=== PATIENT | female | born 1945 | race Caucasian/White ===

== ENCOUNTER → 2020-06-15 | Outpatient (CLI) | payer MEDICARE ==
--- NOTE | 2020-06-17 15:50 | RAD ---
BILATERAL SCREENING MAMMOGRAM, 3-D History: Routine screening. Comparison: 06/13/2019, 06/07/2018, 05/24/2017 exam performed at an outside facility. Technique: MLO and CC digital tomosynthesis (3D) images obtained. Radiologist reviewed these images on dedicated workstation. Findings: Breast Tissue Density B : There are scattered areas of fibroglandular density. There are no dominant masses, suspicious microcalcifications, or architectural distortion. Right outer breast asymmetry seen at the lower aspect is present limiting 0.9 cm from the nipple. It is lobulated and measures up to 0.8 cm diameter. IMPRESSION: Ultrasound imaging of the right lower outer breast asymmetry is recommended. Spot compression imaging of the right breast may be needed. BI-RADS Category 0: Incomplete: Need additional imaging evaluation. The images were reviewed with computer-aided detection. Patient information is entered into reminder system with a target due date for the next screening mammogram. Mammography is the most sensitive method for finding small breast cancers, but it does not detect them all and is not a substitute for careful clinical examination. A negative mammogram does not negate a clinically suspicious finding and should not result in delay in biopsying a clinically suspicious abnormality. "Our facility is accredited by the [employer] Mammography Program." Electronically signed by: Yoni Stover MD (06/17/2020 3:48 PM) [facility]
== END ==
LOC: MAMMO 13:10
PROVIDERS: ATTEND Family Medicine
DX: Z12.31 Encounter for screening mammogram for malignant neoplasm of breast (principal)
CPT/HCPCS: 77063; 77067

== ENCOUNTER → 2020-07-06 | Outpatient (CLI) | payer MEDICARE ==
--- NOTE | 2020-07-07 09:35 | RAD ---
Examination: Limited right breast ultrasound. INDICATION: Screening recall for lobulated mass in the lower outer right breast on recent mammogram. COMPARISON: Mammogram of 06/15/2020 TECHNIQUE: Grayscale ultrasound imaging of the right breast in the lateral posterior breast was perfo rmed along with sonographic survey of the right axilla FINDINGS: An oval parallel orientation circumscribed 6 mm vascular masses identified and has a somewhat renifor m shape. This is identified at the 9:30 o'clock position 10.5 cm from the nipple and likely correlate s with the mammographic finding recalled from screening. No suspicious sonographic findings in the ri ght axilla identified. IMPRESSION: Benign intramammary lymph node in the lateral posterior right breast likely accounts for the mammogra phic finding recalled from screening. No evidence of malignancy. BI-RADS Category 2 Benign findings Recommend return to routine mammographic screening next due in one year. Patient entered into a reminder system with targeted due date for next mammogram. Electronically signed by: Gibran Stovall MD (07/07/2020 9:33 AM) [id number]
== END ==
LOC: US 13:42
PROVIDERS: ATTEND Family Medicine
DX: R92.2 Inconclusive mammogram (principal); N63.10 Unspecified lump in the right breast, unspecified quadrant
CPT/HCPCS: 76641

== ENCOUNTER 2021-02-08 00:29 | Emergency (ER) | payer MEDICARE ==
[~2021-02-08] VITALS: Ht 157.5 cm; Wt 72.2 kg
[2021-02-08] MEDS ORDERED: ONDANSETRON PF 4 MG/2 ML VIAL. ONE (00:57)
[2021-02-08 01:33] LABS: BASO # 0.1 x10^3/uL (0.0-0.2); BASO % 1 % (0-3); EOS # 0.1 x10^3/uL (0.0-0.7); EOS % 1 % (0-3); HEMATOCRIT 39.5 % (36.0-47.0); HEMOGLOBIN 13.3 g/dL (12.0-15.5); LYMPH # 1.4 x10^3/uL (1.0-4.8); LYMPH % 17 % (24-48); MEAN CORPUSCULAR HEMOGLOBIN 28 pg (25-35); MEAN CORPUSCULAR HGB CONC 34 g/dL (31-37); MEAN CORPUSCULAR VOLUME 82 fL (79-100); MONO # 0.6 x10^3/uL (0.0-1.1); MONO % 7 % (0-9); NEUT # 6.2 x10^3uL (1.8-7.7); NEUT % 74 % (31-73); PLATELET COUNT 386 x10^3/uL (140-400); RED BLOOD COUNT 4.81 x10^6/uL (3.50-5.40); RED CELL DISTRIBUTION WIDTH 15.2 % (11.5-14.5); WHITE BLOOD COUNT 8.4 x10^3/uL (4.0-11.0)
[2021-02-08 01:38] LABS: CALCIUM 9.8 mg/dL (8.5-10.1); CREATININE 0.8 mg/dL (0.6-1.0); GFR 69.6
[2021-02-08 01:41] LABS: BACTERIA,URINE 0 /HPF (0-FEW); BILIRUBIN,URINE NEG (NEG); CLARITY,URINE CLEAR; COLOR,URINE YELLOW; GLUCOSE,URINE 100 mg/dL (NEG); NITRITE,URINE NEG (NEG); RBC,URINE OCC /HPF (0-2); SQUAMOUS EPITHELIAL CELL,UR FEW /LPF; UROBILINOGEN,URINE 0.2 mg/dL (0.2 mg/dL); WBC,URINE OCC /HPF (0-4)
[2021-02-08 01:43] LABS: ALBUMIN 4.2 g/dL (3.4-5.0); ALBUMIN/GLOBULIN RATIO 1.3 (1.0-1.7); TOTAL BILIRUBIN 0.8 mg/dL (0.2-1.0); TOTAL PROTEIN 7.5 g/dL (6.4-8.2)
[2021-02-08] MEDS ORDERED: PANTOPRAZOLE IV 40 MG VIAL. IVP ONE (02:00)
[2021-02-08] MEDS ORDERED: FAMOTIDINE 20 MG/2 ML VIAL IVP ONE (02:00)
--- NOTE | 2021-02-08 02:33 | RAD ---
EXAM: CHEST ONE VIEW. HISTORY: Chest pain. COMPARISON: None. FINDINGS: A frontal view of the chest is obtained. There are no confluent infiltrates. There is a calcified granuloma in the right upper lobe. There is no pneumothorax or pleural effusion. The heart is not enlarged. There is a large hiatal hernia. There are atherosclerotic calcifications of the aorta. IMPRESSION: 1. Large hiatal hernia. Electronically signed by: Alan Larsen MD (02/08/2021 2:31 AM) [facility]
--- NOTE | 2021-02-08 02:42 | PHYS DOC ---
General Adult EDM: Chief Complaint: ABDOMINAL PAIN HPI: HPI: 75-year-old female presents with epigastric or chest pain. The patient was at home and had dinner. About an hour later she started to have a central burning and pressure in her upper abdomen. She has had this in the past that was diagnosed as heartburn. She took 3 generic Tums. An hour later she started some discomfort so she took 2 more. She started to feel some relief but then pain came back and she became nauseated and mildly diaphoretic. She denies shortness of breath. She decided this could be more than heartburn so she came to the emergency room. Her pain has improved significantly since arriving. No history of cardiac dysfunction. She does have a large hiatal hernia. Review of Systems: Review of Systems: Constitutional: Denies fever or chills Eyes: Denies change in visual acuity HENT: Denies nasal congestion or sore throat Respiratory: Denies cough or shortness of breath Cardiovascular: Denies chest pain or edema GI: Epigastric abdominal pain, nausea. Denies vomiting, bloody stools or diarrhea : Denies dysuria Musculoskeletal: Denies back pain or joint pain Integument: Denies rash Neurologic: Denies headache, focal weakness or sensory changes Endocrine: Denies polyuria or polydipsia Lymphatic: Denies swollen glands Psychiatric: Denies depression or anxiety Current Medications: Current Meds: Current Medications Medications (Trade) Dose Ordered Sig/Yanci Start Time Stop Time Status Last Admin Dose Admin Famotidine (Pepcid Vial) 20 mg 1X ONCE 02/08/21 02:00 02/08/21 02:01 DC Ondansetron HCl (Zofran) 4 mg STK-MED ONCE 02/08/21 00:57 02/08/21 00:57 DC Pantoprazole Sodium (Protonix Vial) 40 mg 1X ONCE 02/08/21 02:00 02/08/21 02:01 DC Allergies: Allergies: Allergies Coded Allergies Type Severity Reaction Last Updated Verified No Known Drug Allergies 02/08/21 No Physical Exam: PE: Constitutional: Well developed, well nourished, obese, no acute distress, non- toxic appearance. [] HENT: Normocephalic, atraumatic, bilateral external ears normal, oropharynx moist, no oral exudates, nose normal. [] Eyes: PERRLA, EOMI, conjunctiva normal, no discharge. [] Neck: Normal range of motion, no tenderness, supple, no stridor. [] Cardiovascular: Heart rate 78, regular rhythm, no murmur [] Lungs & Thorax: Bilateral breath sounds clear to auscultation [] Abdomen: Bowel sounds normal, soft, no tenderness, no masses, no pulsatile masses. [] Skin: Warm, dry, no erythema, no rash. [] Back: No tenderness, no CVA tenderness. [] Extremities: No tenderness, no cyanosis, no clubbing, ROM intact, no edema. [] Neurologic: Alert and oriented X 3, normal motor function, normal sensory function, no focal deficits noted. [] Psychologic: Affect normal, judgement normal, mood normal. [] Current Patient Data: Labs: Laboratory Tests Test 02/08/21 00:40 02/08/21 00:55 Urine Collection Type Unknown Urine Color Yellow Urine Clarity Clear Urine pH 8.0 Urine Specific [place] 1.020 Urine Protein Neg (NEG-TRACE) Urine Glucose (UA) 100 mg/dL (NEG) Urine Ketones (Stick) Neg mg/dL (NEG) Urine Blood Trace (NEG) Urine Nitrite Neg (NEG) Urine Bilirubin Neg (NEG) Urine Urobilinogen Dipstick 0.2 mg/dL (0.2 mg/dL) Urine Leukocyte Esterase Neg (NEG) Urine RBC Occ /HPF (0-2) Urine WBC Occ /HPF (0-4) Urine Squamous Epithelial Cells Few /LPF Urine Bacteria 0 /HPF (0-FEW) White Blood Count 8.4 x10^3/uL (4.0-11.0) Red Blood Count 4.81 x10^6/uL (3.50-5.40) Hemoglobin 13.3 g/dL (12.0-15.5) Hematocrit 39.5 % (36.0-47.0) Mean Corpuscular Volume 82 fL (79-100) Mean Corpuscular Hemoglobin 28 pg (25-35) Mean Corpuscular Hemoglobin Concent 34 g/dL (31-37) Red Cell Distribution Width 15.2 % (11.5-14.5) H Platelet Count 386 x10^3/uL (140-400) Neutrophils (%) (Auto) 74 % (31-73) H Lymphocytes (%) (Auto) 17 % (24-48) L Monocytes (%) (Auto) 7 % (0-9) Eosinophils (%) (Auto) 1 % (0-3) Basophils (%) (Auto) 1 % (0-3) Neutrophils # (Auto) 6.2 x10^3uL (1.8-7.7) Lymphocytes # (Auto) 1.4 x10^3/uL (1.0-4.8) Monocytes # (Auto) 0.6 x10^3/uL (0.0-1.1) Eosinophils # (Auto) 0.1 x10^3/uL (0.0-0.7) Basophils # (Auto) 0.1 x10^3/uL (0.0-0.2) Sodium Level 136 mmol/L (136-145) Potassium Level 4.0 mmol/L (3.5-5.1) Chloride Level 99 mmol/L (98-107) Carbon Dioxide Level 30 mmol/L (21-32) Anion Gap 7 (6-14) Blood Urea Nitrogen 18 mg/dL (7-20) Creatinine 0.8 mg/dL (0.6-1.0) Estimated GFR (Cockcroft-Gault) 69.6 BUN/Creatinine Ratio 23 (6-20) H Glucose Level 156 mg/dL (70-99) H Calcium Level 9.8 mg/dL (8.5-10.1) Total Bilirubin 0.8 mg/dL (0.2-1.0) Aspartate Amino Transferase (AST) 309 U/L (15-37) H Alanine Aminotransferase (ALT) 116 U/L (14-59) H Alkaline Phosphatase 185 U/L (46-116) H Troponin I Quantitative < 0.017 ng/mL (0-0.055) Total Protein 7.5 g/dL (6.4-8.2) Albumin 4.2 g/dL (3.4-5.0) Albumin/Globulin Ratio 1.3 (1.0-1.7) EKG: EKG: Sinus rhythm, rate 78, normal axis, no ST elevation or depression. [] Radiology/Procedures: Radiology/Procedures: [] Impressions: EXAM: CHEST ONE VIEW. HISTORY: Chest pain. COMPARISON: None. FINDINGS: A frontal view of the chest is obtained. There are no confluent infiltrates. There is a calcified granuloma in the right upper lobe. There is no pneumothorax or pleural effusion. The heart is not enlarged. There is a large hiatal hernia. There are atherosclerotic calcifications of the aorta. IMPRESSION: 1. Large hiatal hernia. Electronically signed by: Alan Larsen MD (02/08/2021 2:31 AM) [facility] DICTATED AND SIGNED BY: COREY LARSEN MD DATE: 02/08/21 0230 CC: KAITY MI DO; ENE RAMESH ~MTH0 0 Heart Score: C/O Chest Pain: Yes HEART Score for Chest Pain: HEART Score for Chest Pain Response (Comments) Value History Slighlty/Non-Suspicious 0 ECG Normal 0 Age > 65 2 Risk Factors 1 or 2 Risk Factors 1 Troponin < Normal Limit 0 Total 3 Risk Factors: Risk Factors: DM, Current or recent (<one month) smoker, HTN, HLP, family history of CAD, obesity. Risk Scores: Score 0 - 3: 2.5% MACE over next 6 weeks - Discharge Home Score 4 - 6: 20.3% MACE over next 6 weeks - Admit for Clinical Observation Score 7 - 10: 72.7% MACE over next 6 weeks - Early Invasive Strategies Course & Med Decision Making: Course & Med Decision Making Pertinent Labs and Imaging studies reviewed. (See chart for details) The patient's EKG is unremarkable. Her troponin is negative. Her chest x-ray is significant for hiatal hernia. She does have elevated liver enzymes have added a lipase to the order set. The patient has gotten 40 mg of Protonix and 20 mg of Pepcid. She is feeling better at this time. CT scan of the abdomen and pelvis by my read shows an enlarged gallbladder with likely gallstones. The official read is not available as radiology has not read the scan in a timely manner. Patient would like to go home. I believe this is reasonable. I have told her she should follow-up with her primary physician and talk about surgical consult for gallbladder removal if necessary. She is stable for discharge at this time. [] Dragon Disclaimer: Dragon Disclaimer: This electronic medical record was generated, in whole or in part, using a voice recognition dictation system. Departure Departure: Impression: Primary Impression: Abdominal pain Qualified Codes: R10.13 - Epigastric pain Additional Impression: Elevated liver enzymes Disposition: HOME / SELF CARE / HOMELESS Condition: STABLE Referrals: ENE RAMESH (PCP) Patient Instructions: Abdominal Pain, [id number] KAITY MI DO Feb 08, 2021 02:42
[2021-02-08] MEDS ORDERED: ONDANSETRON PF 4 MG/2 ML VIAL. IVP ONE ×2 (03:30)
[2021-02-08] MEDS ORDERED: CONTRAST GIVEN. MC PRN (03:30)
[2021-02-08] MEDS ORDERED: IOHEXOL 300 MG/ML 75 ML VIAL. IV ONE (03:30)
[2021-02-08 04:51] VITALS: BP 189/106
--- NOTE | 2021-02-08 04:53 | RAD ---
EXAM: CT ABDOMEN/PELVIS WITH CONTRAST. HISTORY: Epigastric pain, elevated liver enzymes. TECHNIQUE: Computed tomography of the abdomen and pelvis was performed after the intravenous administ ration of iodinated contrast. One or more of the following individualized dose reduction techniques w ere utilized for this examination: 1. Automated exposure control. 2. Adjustment of the mA and/or kV according to patient size. 3. Use of iterative reconstruction technique. COMPARISON: None. FINDINGS: Lung windows through the visualized portions of the bases reveal a large hiatal hernia. Bon e windows reveal no suspicious lesions. The gallbladder contains small stones. It is distended with wall thickening and a small amount of per icholecystic fluid. The common duct is not dilated. The liver, pancreas, and adrenal glands are unremarkable. There are calcified granulomas in the splee n. There is a tiny cyst in the right kidney. Note is made of a retroaortic left renal vein. There are no pathologically enlarged lymph nodes. The uterus is surgically absent. Small bilateral in guinal hernias contain only fat. The appendix is not inflamed. A small umbilical hernia contains only fat. There is no small bowel obstruction. IMPRESSION: 1. Cholelithiasis with findings consistent with acute cholecystitis. 2. Large hiatal hernia. 3. Bilateral inguinal and small umbilical hernias containing only fat. Electronically signed by: Alan Larsen MD (02/08/2021 4:51 AM) [facility]
--- NOTE | 2021-02-08 06:30 | EKG ---
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
== END 2021-02-08 04:50 | disposition home or self-care (01) ==
LOC: ER 00:29
DX: R74.8 Abnormal levels of other serum enzymes (principal); R10.13 Epigastric pain; R07.89 Other chest pain
CPT/HCPCS: 36415; 71045; 74177; 80053; 81001; 83690; 84484; 85025; 93005; 96374; 96375; 96376; 99285; C9113; J2405; J3490; Q9967

== ENCOUNTER 2021-04-21 02:36 | Emergency (ER) | payer MEDICARE ==
[~2021-04-21] VITALS: Ht 149.9 cm; Wt 77.7 kg
[2021-04-21 02:49] VITALS: BP 182/97
--- NOTE | 2021-04-21 03:29 | PHYS DOC ---
Past History Additional Past Medical Histor: hiatal hernia Past Surgical History: Cholecystectomy, Hysterectomy, Knee Replacement Alcohol Use: None General Adult EDM: Chief Complaint: MECHANICAL FALL HPI: HPI: Patient is a [age] year old [sex] who presents with [] Review of Systems: Review of Systems: Constitutional: Denies fever or chills Eyes: Denies redness or eye pain HENT: Denies nasal congestion or sore throat Respiratory: Denies cough or shortness of breath Cardiovascular: Denies chest pain or palpitations GI: Denies abdominal pain, nausea, or vomiting : Denies dysuria or hematuria Musculoskeletal: Denies neck pain; reports right shoulder pain Integument: Denies rash or skin lesions Neurologic: Denies headache, focal weakness or sensory changes Complete systems were reviewed and found to be within normal limits, except as documented in this note. Allergies: Allergies: Allergies Coded Allergies Type Severity Reaction Last Updated Verified No Known Drug Allergies 04/21/21 No Physical Exam: PE: Constitutional: Elderly, well nourished, uncomfortable, non-toxic appearance HENT: Normocephalic, atraumatic Eyes: PERRL, EOMI, conjunctiva normal, no discharge Neck: Normal range of motion, no midline tenderness, supple Lungs & Thorax: No respiratory distress, equal chest rise and fall Abdomen: Soft, no tenderness; pelvis stable and nontender Skin: Warm, dry, no erythema, no rash Back: No midline tenderness, no CVA tenderness Extremities: Right glenohumeral tenderness, ROM diminished secondary to pain, no edema, distal sensation intact and right radial pulse +2 Neurologic: Alert and oriented X 3, normal motor function, normal sensory function, no focal deficits noted Psychologic: Affect normal, judgment normal Current Patient Data: Vital Signs: Vital Signs Date Time Temp Pulse Resp B/P (MAP) Pulse Ox O2 Delivery O2 Flow Rate FiO2 04/21/21 02:49 97.5 81 18 182/97 (125) Room Air EKG: EKG: [] Radiology/Procedures: Radiology/Procedures: PROCEDURE: SHOULDER 2+V RIGHT XR SHOULDER_RIGHT 2+ VIEWS History: Reason: pain s/p fall / Spl. Instructions: / History: Technique: 3 views right shoulder Comparison: None. Findings: Acute comminuted right humeral head fracture involving the surgical neck and greater tuberosity. There is mild impaction and angulation Inferior anterior positioning of the humeral head in relation to the glenoid. No additional fracture. Calcified right midlung pulmonary nodule, likely prior granulomatous disease. Impression: 1. Acute comminuted right proximal humerus fracture. 2. Anterior inferior positioning of the humeral head in relation to the glenoid, may relate to joint effusion. Electronically signed by: Louie Quinn DO (04/21/2021 3:30 AM) [facility] Heart Score: C/O Chest Pain: N/A Course & Med Decision Making: Course & Med Decision Making Pertinent Imaging studies reviewed. (See chart for details) Patient presents with report of mechanical trip and fall with subsequent right shoulder pain. Limb neurovascular intact. Patient is neurologically intact. No midline cervical spine tenderness noted. Denies any loss of consciousness or neck pain. Ice applied. X-ray confirmed humeral head fracture. Pain addressed. Shoulder immobilizer placed. Patient stable for discharge with outpatient follow-up with PCP/orthopedics. Orthopedic referral provided. Discussed findings and plan with patient and grandson, who acknowledge understanding and agreement. Edward Disclaimer: Edward Disclaimer: This electronic medical record was generated, in whole or in part, using a voice recognition dictation system. Splinting Splinting : Location: Right shoulder Pre-Made Type: shoulder immobilizer Pre-Proc Neuro Vasc Exam: normal Post-Proc Neuro Vasc Exam: normal, unchanged from pre-exam Departure Departure: Impression: Primary Impression: Fall Qualified Codes: W19.XXXA - Unspecified fall, initial encounter Additional Impression: Fracture of humeral head, right, closed Qualified Codes: S42.291A - Other displaced fracture of upper end of right humerus, initial encounter for closed fracture Disposition: 01 HOME / SELF CARE / HOMELESS Condition: STABLE Referrals: ENE RAMESH (PCP) DAVID ELLISON EVERETT J Jr. DO Patient Instructions: Fall Prevention and Home Safety, [id number], Shoulder Fracture (Proximal Humerus or Glenoid)-SportsMed, Shoulder Immobilizer Additional Instructions: Follow closely with orthopedics. Maintain shoulder with shoulder immobilizer. ICE area of discomfort 20 min on then leave off next 20 mins. Repeat several times daily as needed for next few days. Scripts Hydrocodone Bit/Acetaminophen (HYDROCODONE-APAP 5-325 ) 1 Each Tablet 0.5-1 TAB PO PRN Q6HRS PRN for PAIN, #14 TAB 0 Refills Prov: RISHI MA DO 04/21/21 RISHI MA DO Apr 21, 2021 03:29
--- NOTE | 2021-04-21 03:32 | RAD ---
XR SHOULDER_RIGHT 2+ VIEWS History: Reason: pain s/p fall / Spl. Instructions: / History: Technique: 3 views right shoulder Comparison: None. Findings: Acute comminuted right humeral head fracture involving the surgical neck and greater tuberosity. Ther e is mild impaction and angulation Inferior anterior positioning of the humeral head in relation to t he glenoid. No additional fracture. Calcified right midlung pulmonary nodule, likely prior granulomat ous disease. Impression: 1. Acute comminuted right proximal humerus fracture. 2. Anterior inferior positioning of the humeral head in relation to the glenoid, may relate to joint effusion. Electronically signed by: Louie Quinn DO (04/21/2021 3:30 AM) [facility]
[2021-04-21] MEDS ORDERED: HYDR-2155 PO (03:37)
[2021-04-21] MEDS ORDERED: HYDROcodone/APAP 5/325MG 1 TAB TABLET PO ONE (04:00)
== END 2021-04-21 03:49 | disposition home or self-care (01) ==
LOC: ER 02:36
DX: S42.291A Other displaced fracture of upper end of right humerus, initial encounter for closed fracture (principal); W18.39XA Other fall on same level, initial encounter; Y93.89 Activity, other specified; Y92.89 Other specified places as the place of occurrence of the external cause; Y99.8 Other external cause status
CPT/HCPCS: 29105; 73030; 99284

== ENCOUNTER → 2021-06-17 | Outpatient (CLI) | payer MEDICARE ==
[~2021-06-17] MED LIST: HYDR-2155 PO
--- NOTE | 2021-06-17 12:28 | RAD ---
BILATERAL DIGITAL SCREENING 2-D AND 3-D MAMMOGRAM INDICATION: Routine screening. COMPARISON: June 15, 2020, June 13, 2019, June 07, 2018, May 24, 2017 Interpretation was made using CAD. FINDINGS: Breast Density: There are scattered areas of fibroglandular density. RIGHT BREAST: No suspicious masses, calcifications or areas of architectural distortion are seen. LEFT BREAST: No suspicious masses, calcifications or areas of architectural distortion are seen. IMPRESSION: 1. No imaging evidence of malignancy. ASSESSMENT: BI-RADS 1. Negative. RECOMMENDATION: Routine annual screening mammogram. The facility will notify the patient of the results via mail. Patient information will be entered int o the mammography reminder system with a target recall date for the next mammogram. A reminder letter will be generated by the facility. Electronically signed by: Emmanuelle Coyle MD (06/17/2021 12:26 PM) [id number]
== END ==
LOC: MAMMO 08:13
PROVIDERS: ATTEND Family Medicine
DX: Z12.31 Encounter for screening mammogram for malignant neoplasm of breast (principal)
CPT/HCPCS: 77063; 77067